=== PATIENT | male | born 1945 | race Caucasian/White ===

== ENCOUNTER → 2017-04-12 | Outpatient (CLI) | payer OTHER | LOC: BHLMT 09:30 | PROVIDERS: ATTEND Internal Medicine Interventional Cardiology | DX: I34.1 Nonrheumatic mitral (valve) prolapse (principal); I34.0 Nonrheumatic mitral (valve) insufficiency; R06.09 Other forms of dyspnea | CPT/HCPCS: 93005-PO ==

== ENCOUNTER → 2017-04-28 | Outpatient (CLI) | payer OTHER | LOC: BHLMT 15:30 | PROVIDERS: ATTEND Internal Medicine Cardiovascular Disease | DX: R06.09 Other forms of dyspnea (principal) ==

== ENCOUNTER → 2017-06-07 | Outpatient (CLI) | payer OTHER | LOC: BHLMT 09:00 | PROVIDERS: ATTEND Thoracic Surgery (Cardiothoracic Vascular Surgery) | DX: Z01.810 Encounter for preprocedural cardiovascular examination (principal); I49.9 Cardiac arrhythmia, unspecified | CPT/HCPCS: 93225-PO; 93226-PO ==

== ENCOUNTER 2017-06-14 09:11 | Inpatient (IN) | payer OTHER ==
--- NOTE | 2017-06-14 08:35 | PDHPUP ---
History & Physical Update H&P update statement: This history and physical update is based on an assessment of the patient which was completed after admission or registration (within 24 hours), but prior to the surgery/procedure. H&P update: H&P reviewed & patient examined, no change in patient's condition since H&P completed
--- NOTE | 2017-06-14 08:36 | PDPROPOC ---
Sedation Plan of Care Sedation Plan of Care: vital signs stable, mental status noted, patient educated of risks, benefits, alternatives, patient can tolerate sedation ASA Classification: ASA 3 Planned drugs: fentanyl, midazolam Mallampati Score: Class 3 Mallampati Reference Image: Patient passed 3-3-2 rule?: Yes
[2017-06-14] MEDS ORDERED: diphenhydrAMINE 25 MG CAP PO ONE ×2 (09:14→09:35)
[2017-06-14] MEDS ORDERED: FAMOTIDINE 20 MG TAB PO ONE (09:14)
[2017-06-14] MEDS ORDERED: ASPIRIN EC 325 MG TAB PO ONE ×2 (09:14→09:35)
[2017-06-14] MEDS ORDERED: NS 1,000 ML IV ONE (09:14)
[2017-06-14] MEDS ORDERED: DIAZEPAM 5 MG TAB ONE (09:35)
[2017-06-14] MEDS ORDERED: FAMOTIDINE 20 MG TAB ONE (09:35)
--- NOTE | 2017-06-14 09:40 | CPEKG ---
Heart Rate: 73 RR Interval: 822 P-R Interval: 160 QRSD Interval: 108 QT Interval: 440 QTC Interval: 485 P [place]: 51 QRS [place]: -26 T Wave [place]: 35 EKG Severity - ABNORMAL ECG - EKG Impression: SINUS RHYTHM EKG Impression: MULTIPLE VENTRICULAR PREMATURE COMPLEXES EKG Impression: BORDERLINE PROLONGED QT INTERVAL EKG Impression: LEFT AXIS DEVIATION EKG Impression: LEFT VENTRICULAR HYPERTROPHY Electronically Signed By: Herbie Lane 15-Jun-2017 11:46:41
[2017-06-14 10:01] LABS: INR 1.02 (0.83-1.16); PROTIME(PATIENT) 13.6 SEC (12.0-15.0)
[2017-06-14] MEDS: DIAZEPAM 5 MG TAB PO ONE ×2 (10:02→10:07)
[2017-06-14 10:07] LABS: PLATELET COUNT 183 10^3/uL (150-400)
[2017-06-14] MEDS ORDERED: fentaNYL 100 MCG/2 ML INJ ONE (10:23)
[2017-06-14] MEDS ORDERED: VERAPAMIL 5 MG/2 ML VIAL ONE (10:23)
[2017-06-14] MEDS ORDERED: MIDAZOLAM 2 MG/2 ML VIAL ONE ×2 (10:23→12:15)
[2017-06-14] MEDS ORDERED: LIDOCAINE 1% 300 MG/30 ML SDV ONE (10:23)
[2017-06-14] MEDS ORDERED: HEPARIN 10,000 UNIT/10 ML MDV (1,000 UNIT/ML) ONE (10:24)
[2017-06-14] MEDS ORDERED: IOPAMIDOL (ISOVUE-370) 150 ML BTL IV ONE (10:24)
[2017-06-14] MEDS ORDERED: ETOMIDATE 40 MG/20 ML INJ ONE (11:07)
--- NOTE | 2017-06-14 12:14 | PDDXCAT ---
Diagnostic Cath Note - . 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 It bifurcates into an LAD and circumflex system. LAD: LAD is 4mm in size. LCX: Circumflex is 3.5mm in size. There is no flow limiting obstruction identified. KRISTOFER III flow. RCA: RCA is dominant. It is 4mm in size. There is a paiz's crook deformity at takeoff from right coronary cusp. KRISTOFER III flow throughout. Complications: None. 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 The patient has moderately severe mitral regurgitation as well as evidence of a PFO on SU. The patient has no evidence of significant coronary disease. During the procedure the patient vomitted a fairly large amount of bilious material. The patient's saturation and breathing pattern were normal throughout. Plan: The patient will proceed with mitral valve repair, although it may be reasonable to wait to make sure he has not had an aspiration injury to his lung. Intervention: None.
[2017-06-14] MEDS ORDERED: ONDANSETRON 4 MG/2 ML VIAL ONE (12:30)
[2017-06-14] MEDS ORDERED: ONDANSETRON 4 MG/2 ML VIAL IVP PRN (12:34)
[2017-06-14] MEDS ORDERED: NITROGLYCERIN 0.4 MG BTL SL PRN (12:34)
[2017-06-14] MEDS ORDERED: ATROPINE SULFATE 1 MG/10 ML SYR IVP PRN (12:34)
[2017-06-14] MEDS: FAMOTIDINE 20 MG TAB PO SCH (18:29)
[2017-06-14] MEDS ORDERED: CHLORHEXIDINE GLUC HIBICLENS 118 ML BTL TP SCH (21:00)
[2017-06-14] MEDS: MUPIROCIN 2% 22 GM OINT NS SCH (22:10)
[2017-06-14] MEDS: SENNOSIDES/DOCUSATE SODIUM TAB PO SCH (22:12)
[2017-06-15] MEDS ORDERED: PHENYLEPHRINE HCL 50 MG in NS 250 ML IV ONE (06:00)
[2017-06-15] MEDS ORDERED: ceFAZolin 2 GM/SWFI 2 GM/20 ML SYR IVP ONE (06:00)
[2017-06-15] MEDS ORDERED: niCARdipine/NACL 200 ML IV ONE (06:00)
[2017-06-15] MEDS ORDERED: INSULIN REGULAR HUMAN 100 UNIT in NS 100 ML IV ONE (06:00)
[2017-06-15] MEDS ORDERED: AMINOCAPROIC ACID 5 GM/20 ML VIAL IV ONE (06:00)
[2017-06-15] MEDS ORDERED: MANNITOL 25% 12.5 GM/50 ML VIAL IVP ONE (06:00)
[2017-06-15] MEDS ORDERED: SODIUM BICARBONATE 20 MEQ, LIDOCAINE 1% 10 ML in NORMOSOL-R 1,000 ML MISC ONE (06:00)
[2017-06-15] MEDS ORDERED: CITRATE DEXTROSE SOLN 500 ML BAG MISC ONE (06:00)
[2017-06-15] MEDS ORDERED: LR 1,000 ML IV ONE (06:16)
[2017-06-15] MEDS ORDERED: ALBUMIN 5% 250 ML BOTTLE IV ONE ×2 (06:21→11:15)
[2017-06-15] MEDS ORDERED: MILRINONE/DEXTROSE/100 ML BAG IV ONE (06:21)
[2017-06-15] MEDS ORDERED: PROTAMINE SULFATE 50 MG/5 ML VIAL IVP ONE (06:21)
[2017-06-15] MEDS ORDERED: CALCIUM CHLORIDE 1 GM/10 ML INJ ONE (06:21)
[2017-06-15] MEDS ORDERED: LIDOCAINE 2% 100 MG/5 ML SYR ONE ×2 (06:21→07:23)
[2017-06-15] MEDS ORDERED: NA BICARBONATE 50 MEQ/50 ML VIAL ONE (06:21)
[2017-06-15] MEDS ORDERED: HEPARIN 10,000 UNIT/10 ML MDV (1,000 UNIT/ML) ONE (06:22)
[2017-06-15] MEDS ORDERED: CITRATE DEXTROSE SOLN 500 ML BAG ONE (06:22)
[2017-06-15] MEDS ORDERED: ADENOSINE 6 MG/2 ML VIAL ONE (06:22)
[2017-06-15] MEDS ORDERED: niCARdipine/NACL/200 ML BAG IV ONE (06:22)
[2017-06-15] MEDS ORDERED: DOPamine/DEXTROSE/250 ML BAG IV ONE ×2 (06:22→14:39)
[2017-06-15] MEDS ORDERED: AMIODARONE HCL 150 MG/3 ML VIAL ONE (06:22)
[2017-06-15] MEDS ORDERED: ceFAZolin 1 GM VIAL ONE (06:23)
[2017-06-15] MEDS ORDERED: methylPREDNISolone SOD SUCC 1 GM/8 ML VIAL ONE (06:23)
[2017-06-15] MEDS ORDERED: MAGNESIUM SULFATE 1 GM/2 ML VIAL ONE (06:23)
--- NOTE | 2017-06-15 06:46 | PDHPUP ---
<Omar Duncan - Last Filed: 06/15/17 12:28> History & Physical Update H&P update statement: This history and physical update is based on an assessment of the patient which was completed after admission or registration (within 24 hours), but prior to the surgery/procedure. <Chiara Berger - Last Filed: 06/16/17 10:49> History & Physical Update H&P update statement: This history and physical update is based on an assessment of the patient which was completed after admission or registration (within 24 hours), but prior to the surgery/procedure. H&P update: H&P reviewed & patient examined, changes noted H&P changes: CXR NAF. Carotid US neg for HD sig stenosis
[2017-06-15] MEDS ORDERED: MIDAZOLAM 2 MG/2 ML VIAL IVP ONE (06:52)
[2017-06-15] MEDS ORDERED: SCOPOLAMINE HYDROBROMIDE 1 MG/3 DAYS PATCH TD SCH (07:00)
[2017-06-15] MEDS ORDERED: DEXMEDETOMIDINE HCL 400 MCG in NS 100 ML IV SCH (07:00)
--- NOTE | 2017-06-15 07:02 | PDANEPAE ---
ANE History of Present Illness posterior cord rupture s/f MVR, PFO, JAXON clipping ANE Past Medical History - Cardiovascular History Hx Hypertension: No Hx Arrhythmias: Yes Hx Chest Pain: No Hx Coronary Artery / Peripheral Vascular Disease: No Hx CHF / Valvular Disease: Yes Cardiovascular History Comment: severe MR - Pulmonary History Hx Oxygen in Use at Home: No Hx Sleep Apnea: No Sleep Apnea Screening Result - Last Documented: Positive - Endocrine History Hx Diabetes: No - Cancer History Hx Cancer: Yes Cancer History Comment: melanoma - Chronic Pain History Chronic Pain: Yes ANE Review of Systems Review of Systems: - Exercise capacity Exercise capacity: >=4 METS ANE Patient History - Allergies Allergies/Adverse Reactions: codeine Allergy (Verified 06/14/17 16:03) Vomiting - Home Medications Home medications: home medication list seen and reviewed Home Medications: Carboxymethylcellulose 1% [Refresh Celluvisc (*)] 1 drop EACHEYE DAILY PRN 06/07 [Last Taken 06/13/17] Famotidine [Pepcid 20 MG (*)] 60 mg PO BIDMEAL 06/07/17 [Last Taken 06/13/17] Fexofenadine HCl [Vashti Allergy] 180 mg PO BID 06/07/17 [Last Taken 06/14/17] Spironolactone [Aldactone 25 MG (*)] 25 mg PO DAILY 06/07/17 [Last Taken ] - NPO status NPO Since - Liquids (Date): 06/15/17 NPO Since - Liquids (Time): 00:01 NPO Since - Solids (Date): 06/15/17 NPO Since - Solids (Time): 00:01 - Anes Hx Anes Hx: post operative nausea and vomiting - Smoking Hx Smoking Status: Never smoked - Alcohol Use Alcohol Use: Occasionally - Family Anes Hx Family Anes Hx: none ANE Labs/Vital Signs - Labs Result Diagrams: 06/14/17 Unknown 06/15/17 05:21 - Vital Signs Blood Pressure: 134/86 Heart Rate: 68 Respiratory Rate: 16 O2 Sat (%): 95 Height: 200.66 cm Weight: 119.9 kg ANE Physical Exam - Airway Mallampati Score: Class 2 Mouth exam: normal dental/mouth exam - Pulmonary Pulmonary: no respiratory distress - Cardiovascular Cardiovascular: regular rate and rhythym, systolic murmur - ASA Status ASA Status: II ANE Anesthesia Plan Anesthesia Plan: general endotracheal anesthesia Lines/Monitors: arterial line, central line, SU (scopalamine patch, precedex, aggresive PONV prophylaxis)
[2017-06-15] MEDS: MUPIROCIN 2% 22 GM OINT NS SCH ×2 (07:17→19:35)
[2017-06-15] MEDS ORDERED: fentaNYL 250 MCG/5 ML INJ ONE (07:22)
[2017-06-15] MEDS ORDERED: REMIFENTANIL HCL 1 MG VIAL ONE ×2 (07:22→09:24)
[2017-06-15] MEDS ORDERED: PHENYLEPHRINE HCL 100 MCG/ML SYR ONE (07:22)
[2017-06-15] MEDS ORDERED: MIDAZOLAM 2 MG/2 ML VIAL ONE ×2 (07:22)
[2017-06-15] MEDS ORDERED: PROPOFOL/EMULSION 500 MG/50 ML BOTTLE IV ONE ×2 (07:22→09:24)
[2017-06-15] MEDS ORDERED: ONDANSETRON 4 MG/2 ML VIAL ONE (07:23)
[2017-06-15] MEDS ORDERED: ROCURONIUM 100 MG/10 ML VIAL ONE (07:23)
[2017-06-15] MEDS ORDERED: DEXAMETHASONE 4 MG/ML VIAL ONE ×2 (07:23)
[2017-06-15] MEDS ORDERED: SCOPOLAMINE HYDROBROMIDE 1 MG/3 DAYS PATCH TD ONE (07:46)
--- NOTE | 2017-06-15 09:06 | PDMN ---
Medical Necessity Medical necessity: IP surgery per [facility] cpt 66648, 20455 Cath pre MVR
[2017-06-15] MEDS ORDERED: MAGNESIUM SULF 2 GM/WATER 50 ML BAG IV ONE (11:15)
[2017-06-15] MEDS ORDERED: MINERAL OIL 10 ML VIAL ONE (11:15)
[2017-06-15] MEDS ORDERED: SUGAMMADEX SODIUM 200 MG/2 ML VIAL IVP ONE (11:19)
[2017-06-15] MEDS ORDERED: fentaNYL 100 MCG/2 ML INJ ONE (11:27)
[2017-06-15] MEDS: FAMOTIDINE 20 MG TAB PO SCH ×2 (11:45→17:51)
[2017-06-15] MEDS: SENNOSIDES/DOCUSATE SODIUM TAB PO SCH (11:46)
[2017-06-15] MEDS ORDERED: D50W 25 GM/50 ML SYR IVP PRN (11:49)
[2017-06-15] MEDS ORDERED: MEPERIDINE 25 MG/ML SYR IVP PRN (11:49)
[2017-06-15] MEDS ORDERED: ACETAMINOPHEN 650 MG SUPP PR PRN (11:49)
[2017-06-15] MEDS ORDERED: POLYETHYLENE GLYCOL 3350 17 GM PKT PO PRN (11:49)
[2017-06-15] MEDS ORDERED: LACTULOSE 20 GM/30 ML UDCUP PO PRN (11:49)
[2017-06-15] MEDS ORDERED: CEPACOL LOZENGE PO PRN (11:49)
[2017-06-15] MEDS ORDERED: MAGNESIUM HYDROXIDE 30 ML UDCUP PO PRN (11:49)
[2017-06-15] MEDS ORDERED: ONDANSETRON DISINTEGRATING 4 MG TAB PO PRN (11:49)
[2017-06-15] MEDS ORDERED: PANTOPRAZOLE SODIUM 40 MG VIAL IVP ONE (11:49)
[2017-06-15] MEDS ORDERED: MAGNESIUM SULF 2 GM/WATER 50 ML IV ONE (11:49)
[2017-06-15] MEDS ORDERED: HYDROCODONE/APAP 5/325 TAB PO PRN (11:49)
[2017-06-15] MEDS ORDERED: POTASSIUM Cl (KCl) 50 ML IV PRN (11:49)
[2017-06-15] MEDS ORDERED: SODIUM CL NASAL 45 ML BTL EACHNARE PRN (11:49)
[2017-06-15] MEDS ORDERED: BISACODYL 10 MG SUPP PR PRN (11:49)
[2017-06-15] MEDS ORDERED: fentaNYL 100 MCG/2 ML INJ IVP PRN (11:49)
[2017-06-15] MEDS ORDERED: NS 1,000 ML IV SCH (12:00)
[2017-06-15] MEDS ORDERED: KETOROLAC 15 MG/1 ML SDV IVP SCH (12:00)
[2017-06-15] MEDS ORDERED: INSULIN REGULAR HUMAN 100 UNIT in NS 100 ML IV SCH (12:00)
[2017-06-15] MEDS: ALBUMIN 5% 250 ML IV PRN ×3 (12:15→14:55)
[2017-06-15] MEDS ORDERED: AMIODARONE HCL 200 ML IV ONE (12:30)
--- NOTE | 2017-06-15 12:33 | GOP ---
[f rep st] OPERATIVE REPORT DATE OF OPERATION: 06/15/2017 SURGEON: Omar Duncan DO SAUSAGE COOKER: Chiara Berger PA-C ANESTHESIOLOGIST: Mani Duffy MD PREOPERATIVE DIAGNOSIS: 1. Severe mitral insufficiency. 2. Patent foramen ovale. 3. Septal hypertrophy. POSTOPERATIVE DIAGNOSIS: 1. Severe mitral insufficiency. 2. Patent foramen ovale. 3. Septal hypertrophy. PROCEDURE PERFORMED: 1. Chordal-sparing mitral valve replacement with a 33 mm Magna bioprosthesis. 2. Exploration for patent foramen ovale, none found. 3. Extended septal myectomy. 4. Atrial clip the left atrial appendage. FINDINGS: DESCRIPTION OF PROCEDURE: The patient was consented for surgery, brought to the operating room, intu bated. Monitoring lines were placed. He was prepped in a sterile classical manner. Time-out was co nfirmed. Sternotomy was performed. He was heparinized. Intraoperative transesophageal echo reveale d anteriorly directed severe mitral insufficiency emanating from predominantly P1, but also P2. The anterior leaflet was markedly thickened. There was moderate mitral annular calcification. He was he parinized, cannulated in a standard fashion with bicaval cannulae, and a retrograde catheter. Cardio pulmonary bypass was begun and cardioplegic arrest was obtained with antegrade cardioplegia, retrogra de cardioplegia, topical hypothermia, and systemic cooling throughout the procedure every 8-10 minute s. Initially, an aortotomy was performed. The aortic valve was trileaflet with some mild thickening and some central regurgitation on echo, which was felt to be mild at most. The valve was gently ret racted. The septum was exposed and a trapezoid shaped segment approximately 1 cm thick x 2 cm wide w as taken from the midportion below the right coronary artery, toward the mitral valve annulus, all th e way down to the apex, where the papillary muscle was adherent to this septum, and was as well. This was copiously irrigated. No loose material was identified. We then closed the aortotomy with 2 layer 4-0 Prolene, then placed a 40 mm atrial clip across the across the base of the left atr ial appendage, which was free of thrombus on echo. We then exposed the mitral valve through the righ t superior pulmonary vein. The anterior leaflet was markedly thickened and not very pliable. There was moderate mitral annular calcification. However, I felt that the anulus was potentially repairabl e. I then identified complete prolapse of P1 with ruptured chordae and marked prolapse of P2 and P3, as well as A3. I initially repaired P1 with a triangular resection. With distention of the ventric le, I felt that adequate repair would be markedly difficult because of the thickness and lack of plia bility of most of the remaining leaflet. For that reason, I decided to do a chordal-sparing replacem ent. Anterior leaflet was detached and reapproximated at 8 and 4 o'clock into a horizontal mattress pledgeted suture placed through the anulus and through a 33 mm Magna valve. It was secured with Cor- Knots. LV chamber was irrigated again. Left atrium was closed in a standard fashion. Prior to that , I did look for a PFO. With distention of the right atrium, there was no blood trickling down from the septal wall. Even with a mirror, I could find no patent foramen. I believe it was quite lateral , and then the part of the suture line, which I took larger plates in order to incorporate any PFO th at might remain under the retractor, although I could not clearly define it when closing the left atr ium. The patient was placed in deep Trendelenburg. The cross-clamp was removed with suction on the ascending aortic vent with intermittent aspiration through the LV apex. When no further air was iden tified, he was weaned from bypass. Transesophageal echo revealed no perivalvular leak and no obstruc tion to the outflow tract, with a normal-appearing septum, and no chordal bilateral impingement of th e outflow tract. The heparin was reversed with protamine. The cannula was removed and oversewn. Tw o ventricular pacing wires, 1 right pleural and 1 mediastinal drain, were placed. The thymic fat and pericardium were closed. The chest was closed in standard fashion. Patient was returned to ICU in stable condition. /[id number]/MODL
[2017-06-15] MEDS ORDERED: ALBUMIN 5% 500 ML BOTTLE IV ONE (12:36)
[2017-06-15] MEDS: ONDANSETRON 4 MG/2 ML VIAL IVP PRN ×3 (13:17→20:46)
[2017-06-15] MEDS ORDERED: ENOXAPARIN 40 MG/0.4 ML SYR SC SCH (14:30)
[2017-06-15] MEDS: METOCLOPRAMIDE 10 MG/2 ML VIAL IVP PRN ×2 (14:45→19:58)
[2017-06-15] MEDS ORDERED: ALBUMIN 5% 500 ML IV ONE (15:00)
--- NOTE | 2017-06-15 17:20 | POSTANESTH ---
Post Anesthetic Evaluation Cardiovascular Status: Tx Hyper/Hypo-tension (small amount of Dopamine) Respiratory Status: Tx Decrease in SpO2 (O2 by NC) Level of Consciousness/Mental Status: Can Participate in Eval, Mildly Sleepy, Arousable Pain Control: Adequate, Prn Tx Ordered (Morphine working now) Nausea/Vomiting Control: Adequate, Prn Tx Ordered (0 N/V so far) Complications Possibly Related to Anesthesia: None Noted
[2017-06-15] MEDS ORDERED: AMIODARONE HCL 540 MG in D5W 300 ML IV ONE (18:30)
[2017-06-15] MEDS: ceFAZolin 2 GM/SWFI 2 GM/20 ML SYR IVP SCH (19:11)
[2017-06-15] MEDS ORDERED: ceFAZolin 2 GM/DEXTROSE 100 ML IV SCH (20:00)
[2017-06-15] MEDS ORDERED: ALBUMIN 5% 250 ML IV ONE (21:45)
[2017-06-16] MEDS: ceFAZolin 2 GM/SWFI 2 GM/20 ML SYR IVP SCH ×3 (04:25→20:37)
[2017-06-16 04:28] LABS: PLATELET COUNT 107 10^3/uL (150-400)
[2017-06-16 04:37] LABS: INR 1.25 (0.83-1.16); PROTIME(PATIENT) 15.9 SEC (12.0-15.0)
[2017-06-16] MEDS ORDERED: AMIODARONE A.FIB-LOAD DOSE(ORDER 1/3) PREMIX IV ONE (05:30)
[2017-06-16] MEDS: HEPARIN 5,000 UNIT/0.5 ML SYR SC SCH ×3 (06:06→20:37)
--- NOTE | 2017-06-16 07:12 | SOAPPROG ---
SOAP Progress Note Assessment/Plan: Assessment: POD#1 Chordal sparing MVR #33 Magna bioprosthesis, transaortic septal myectomy, exploration for PFO, prophylactic AtriClip ligation JAXON Sx severe MR - Complex bileaflet involvement not amenable to repair and converted to MVR. Extubated in the OR. Mild postCPB vasoplegia requiring low dose pressor support. No bradyarrhythmias. No significant CTOP. Antithrombotic prophylaxis with Coumadin. Target INR 2-3. Duration 3 mo pending stability of rhythm. Chronic class II dCHF - Compensated with diuresis. No significant postop volume overload. Reintro of diuretic when appropriate. Asymmetric septal hypertrophy - s/p extended myectomy. Antithrombotic prophylaxis as per MV. Postop PAF - Hx PAT. AF prophylaxis with amio begun in OR. Early postop rhythm SB. Insufficient BP for BB. Burst of SVT this am treated with addtl amio. Plan cont amio unless becomes pacer dependent. Acute expected blood loss anemia - Stable. No transfusions required. Hx small PFO - Not found by intraop inspection. Plan: Routine POD#1 orders re drains, orals and mobility. Vpace at 90 to facilitate dopa wean. Keep david until off dopa. Cont amio as per protocol. Lasix prn CVP > 19. Colloid prn CVP < 15. Inc activity as tolerated. Possible tx to PCU later today. 06/16/17 07:06 Subjective: Doing ok. Pain controlled. Thirsty. No nausea. Eager to try getting OOB. Wants aj out. Objective: Vital Signs Temp Pulse Resp BP Pulse Ox 37.3 C 52 L 22 H 97/59 L 91 L 06/16/17 04:00 06/16/17 06:00 06/16/17 06:00 06/16/17 06:00 06/16/17 06:00 Laboratory Results 06/16/17 04:20 06/16/17 04:20 06/15/17 06/16/17 06/17/17 05:59 05:59 05:59 Intake Total 1100 2751 Output Total 1815 Balance 1100 936 PT 15.9 SEC (12.0-15.0) H 06/16/17 04:20 INR 1.25 (0.83-1.16) H 03/08/18 04:20 BP sag yest afternoon, txd with dopa. Overnoc titration down to 4 mcg. CVPs 17- 19. Adequate UOP Holding SB after burst of SVT/AF this am. With Vpacing at 90 able to augment BP by 20 pts, and dopa wean initiated. Positive fluid balance. +4 kg overall. CXR -> No PTX, mild pulm vasc congestion, bibasilar atelectasis L>R Labs as expected. Physical Exam - Physical Exam General Appearance: alert, no apparent distress Respiratory: crackles, other (blakes x 2 y-d to pleurovac, serosang drainage, no air leak) Cardiac/Chest: regular rate, rhythm, other (Sternotomy CDI. Vwires intact.) Abdomen: non-tender, soft, other (hypoactive BS) Skin: warm/dry Extremities: swelling (1+ gen) ICD10 Worksheet Patient Problems: Problems Problem Status Onset Acute blood loss anemia Acute S/P mitral valve replacement with bioprosthetic valve Acute ~06/15/17 S/P ventricular septal myectomy Acute ~06/15/17 Severe mitral regurgitation Acute Asymmetric septal hypertrophy Chronic History of paroxysmal atrial tachycardia Chronic
[2017-06-16] MEDS: FAMOTIDINE 20 MG TAB PO SCH ×2 (09:51→17:37)
[2017-06-16] MEDS: ASPIRIN 81 MG CHEWABLE TAB PO SCH (09:52)
[2017-06-16] MEDS: MUPIROCIN 2% 22 GM OINT NS SCH ×2 (09:54→20:40)
[2017-06-16] MEDS: ONDANSETRON 4 MG/2 ML VIAL IVP PRN (10:45)
[2017-06-16] MEDS ORDERED: ALBUMIN 5% 250 ML IV ONE ×2 (11:49→15:30)
--- NOTE | 2017-06-16 14:24 | ASMTCASEMG ---
Living Arrangements What is your living Answers: With Spouse arrangement? Who do you live with? Type Of Residence What kind of residence do Answers: House you live in? Discharge Plan Comments Coordination Status Comments Notes: Reviewed chart. Patient is a 71yo male who comes to the hospital for mitral valve replacement with Dr. Duncan. OT/PT/Cardiac rehab have been ordered. PT is recommending either home care or SNF rehab depending on the patient's progress. OT states no needs. D/C plan TBD in the next couple of days as patient recovers more from surgery. CM will follow. Date Signed: 06/16/2017 02:23 PM Electronically Signed By:Khalida Chaudhary LCSW
[2017-06-16] MEDS ORDERED: ALBUMIN 5% 250 ML BOTTLE IV ONE (15:17)
[2017-06-16] MEDS ORDERED: NOREPINEPHRINE/NS 500 ML IV SCH (15:30)
[2017-06-16] MEDS ORDERED: NOREPINEPHRINE BITARTRATE 4 MG in D5W 500 ML IV SCH (16:30)
[2017-06-16] MEDS: ACETAMINOPHEN 325 MG TAB PO PRN (18:45)
[2017-06-17] MEDS: ACETAMINOPHEN 325 MG TAB PO PRN ×2 (03:55→23:11)
[2017-06-17] MEDS: ceFAZolin 2 GM/SWFI 2 GM/20 ML SYR IVP SCH (04:58)
[2017-06-17] MEDS: HEPARIN 5,000 UNIT/0.5 ML SYR SC SCH ×2 (05:00→11:17)
[2017-06-17 05:18] LABS: PLATELET COUNT 91 10^3/uL (150-400)
[2017-06-17 05:27] LABS: INR 1.26 (0.83-1.16)
--- NOTE | 2017-06-17 06:54 | SOAPPROG ---
SOAP Progress Note Assessment/Plan: Assessment: POD#2 Chordal sparing MVR #33 Magna bioprosthesis, transaortic septal myectomy, exploration for PFO, prophylactic AtriClip ligation JAXON Sx severe MR - Complex bileaflet involvement not amenable to repair and converted to MVR. Extubated in the OR. Mild postCPB vasoplegia requiring low dose pressor support. No significant CTOP. Antithrombotic prophylaxis with Coumadin. Target INR 2-3. Duration 3 mo pending stability of rhythm. Chronic class II dCHF - Compensated with diuresis. No significant postop volume overload. Reintro of diuretic when appropriate. Asymmetric septal hypertrophy - s/p extended myectomy. Antithrombotic prophylaxis as per MV. Postop PAF - Hx PAT. AF prophylaxis with amio begun in OR. Early postop rhythm SB 50s becoming JR/pacer dep after addtl amio for PSVT. Amio subsequently stopped and SB recovered. Paced 80s overnoc for hemodynamic support. Underlying rhythm remains SB 50s. Postop ileus - Distended abd with diminished bowel sounds. Dietary restriction imposed. Supportive therapies for now. Acute expected blood loss anemia - Stable. No transfusions required. Hx small PFO - Not found by intraop inspection. Plan: D/C scopolamine patch. Clear liquid diet. Keep Vwires connected, but no pacing unless intrinsic rate < 50. Remove jason drains. Lasix prn CVP > 19. Colloid prn CVP < 15. Start Coumadin. 5 mg today Baseline postop echo today. Inc activity as tolerated. Possible tx to PCU later today. 06/17/17 06:53 Subjective: Doing ok. Pain well controlled. Belly bloated. Feels constipated and a little nauseous. Dizzy when upright. Objective: Vital Signs Temp Pulse Resp BP Pulse Ox 37.0 C 84 25 H 107/59 L 95 06/16/17 19:49 06/17/17 06:00 06/17/17 06:00 06/17/17 06:00 06/17/17 06:00 Laboratory Results 06/17/17 05:00 06/17/17 05:00 06/16/17 06/17/17 06/18/17 05:59 05:59 05:59 Intake Total 2751 2560.5 Output Total 1815 1591 110 Balance 936 969.5 -110 PT 16.0 SEC (12.0-15.0) H 06/17/17 05:00 INR 1.26 (0.83-1.16) H 06/17/17 05:00 Off levo overnoc. Holding SBP > 100 without overdrive pacing. Positive fluid balance, but < 2 kg by wts. Stable sats on 2lpm O2. CTOP at removal criteria. Labs ok. Physical Exam - Physical Exam General Appearance: alert, no apparent distress Respiratory: lungs clear (grossly), other (blakes x 2 to bulb suction, serosang drainage) Cardiac/Chest: regular rate, rhythm, other (Sternotomy CDI. Vwire intact.) Abdomen: non-tender (to light palp), distended (slightly), other (hypoactive BS) Skin: warm/dry Extremities: other (no visible edema) ICD10 Worksheet Patient Problems: Problems Problem Status Onset Acute blood loss anemia Acute S/P mitral valve replacement with bioprosthetic valve Acute ~06/15/17 S/P ventricular septal myectomy Acute ~06/15/17 Severe mitral regurgitation Acute Asymmetric septal hypertrophy Chronic History of paroxysmal atrial tachycardia Chronic
[2017-06-17] MEDS: FAMOTIDINE 20 MG TAB PO SCH ×2 (07:28→18:19)
[2017-06-17] MEDS ORDERED: CARBOXYMETHYLCELLULOSE 1% 0.4 ML DROPERETTE EACHEYE PRN (07:43)
[2017-06-17] MEDS: traMADol 50 MG TAB PO PRN ×2 (10:33→16:28)
[2017-06-17] MEDS: ASPIRIN 81 MG CHEWABLE TAB PO SCH (10:33)
[2017-06-17] MEDS: SENNOSIDES/DOCUSATE SODIUM TAB PO SCH ×2 (10:33→21:07)
[2017-06-17] MEDS: MUPIROCIN 2% 22 GM OINT NS SCH (10:34)
[2017-06-17] MEDS: CETIRIZINE 10 MG TAB PO SCH (10:34)
--- NOTE | 2017-06-17 12:36 | ECHO ---
[email or web address] [address] [address] Main: [phone] Fax: Transthoracic Echocardiogram Name: JAMA LOTT MR#: [id number] Study Date: 06/17/2017 Study Time: 09:35 AM Date of : 1945 Age: 71 year(s) Height: 200.7 cm (79 in.) Weight: 90.72 kg (200 lb.) BSA: 2.28 m2 Gender: Male Examination: Echo Indication: s/p MVR#33 CE Magna Bioprosthesis and septal myectomy Image Quality: Technically Difficult Contrast: Requested by: Chiara Berger BP: 105 mmHg/59 mmHg Heart Rate: Rhythm: Indication: s/p MVR#33 CE Magna Bioprosthesis and septal myectomy Procedure Staff Sas Statistical Programmer: Andree Molina [facility] Reading Physician: Herbie Castano MD Requesting Provider: Conclusions: Normal size left ventricle. Normal global systolic LV function. EF is 59 %. No obvious color flow across IVS. Right ventricle not well visualized. The left atrium is moderately dilated. The right atrium is normal in size. A bioprothetic mitral valve is in place. Prosthetic mitral valve orifice motion is normal. Prosthetic mitral valve gradients are within normal limits. Trivial MV prosthesis regurgitation. Aortic valve is not well visualized. Mild aortic valve regurgitation is present. No aortic valve stenosis is present. The tricuspid valve is normal in appearance and function. Mild tricuspid regurgitation is present. Right ventricular systolic pressure measures 32mmHg. Pulmonary valve not visualized. No pericardial effusion. Measurements: Chambers Valvular Assessment AV/MV Valvular Assessment TV/PV Normal Normal Normal Name Value Range Name Value Range Name Value Range LVEF (BP): 59 % (>=55 %) AV Vmax: 1.55 m/s (1 m/s-1.7 TR Vmax: 2.58 mm/s ( - ) RVDd(2D): 3.6 cm (1.9 cm-3.8 m/s) TR PGmax: 27 mmHg ( - ) cmmm) AV maxP mmHg ( - ) LVOT Vmax: 0.87 m/s (0.7 m/s-1.1 m/s) Patient: JAMA LOTT Study Date: 06/17/2017 Page 1 of 2 09:35 AM MV meanP mmHg ( - ) MV PHT: 0.111 s ( - ) MVA (PHT): 2.0 s ( - ) Continued Measurements: Chambers Valvular Assessment AV/MV Name Value Name Value LADs Lon.4 cm MV VTI: 45.40 cm LA Area: 30.8 cm2 LA Volume: 105 ml LA Volume Index: 46.1 ml/m2 Findings: Left Ventricle: Normal size left ventricle. Normal global systolic LV function. EF is 59 %. Post-op septal motion noted. No obvious color flow across IVS. Right Ventricle: Right ventricle not well visualized. Left Atrium: The left atrium is moderately dilated. Right Atrium: The right atrium is normal in size. Mitral Valve: A bioprothetic mitral valve is in place. Prosthetic mitral valve orifice motion is normal. Prosthetic mitral valve gradients are within normal limits. Trivial MV prosthesis regurgitation. Aortic Valve: Aortic valve is not well visualized. Mild aortic valve regurgitation is present. No aortic valve stenosis is present. Tricuspid Valve: The tricuspid valve is normal in appearance and function. Mild tricuspid regurgitation is present. Right ventricular systolic pressure measures 32mmHg. The pulmonary artery pressure is normal. Pulmonic Valve: Pulmonary valve not visualized. Pericardium: No pericardial effusion. (No Signature Object) Patient: JAMA LOTT Study Date: 06/17/2017 Page 2 of 2 09:35 AM [id number]
[2017-06-17] MEDS ORDERED: WARFARIN SODIUM 5 MG TAB PO ONE (16:00)
[2017-06-17] MEDS ORDERED: FUROSEMIDE 40 MG/4 ML VIAL IVP ONE (21:01)
[2017-06-18 05:59] LABS: INR 1.49 (0.83-1.16); PROTIME(PATIENT) 18.2 SEC (12.0-15.0)
[2017-06-18] MEDS: ACETAMINOPHEN 325 MG TAB PO PRN ×2 (06:12→18:41)
--- NOTE | 2017-06-18 07:24 | SOAPPROG ---
SOAP Progress Note Assessment/Plan: POD#3 Chordal sparing MVR #33 Magna bioprosthesis, transaortic septal myectomy, exploration for PFO, prophylactic AtriClip ligation JAXON Sx severe MR - Complex bileaflet involvement not amenable to repair and converted to MVR. Extubated in the OR. Mild postCPB vasoplegia requiring low dose pressor support. Antithrombotic prophylaxis with Coumadin. Target INR 2-3. Duration 3 mo pending stability of rhythm. Routine postop echo performed yesterday showed EF 59% and a well-functioning prosthetic mitral valve. Chronic class II dCHF - Compensated with diuresis. No significant postop volume overload. Reintro of diuretic when appropriate. Asymmetric septal hypertrophy - s/p extended myectomy. Antithrombotic prophylaxis as per MV. Postop PAF - Hx PAT. AF prophylaxis with amio begun in OR. Early postop rhythm SB 50s becoming JR/pacer dep after addtl amio for PSVT. Amio subsequently stopped and SB recovered. Previously paced 80s for hemodynamic support, however did not require pacing overnight. Currently in SB 50's. Postop ileus - Improved abd distention with continued diminished bowel sounds. Dietary restriction imposed. Passing flatus but still no BM. Supportive therapies for now. Acute expected blood loss anemia - Stable. No transfusions required. Hx small PFO - Not found by intraop inspection. Tooth pain- Similar in nature to patient's sinus infection that he had 3 weeks ago. Suspect possible recurrent infection. Plan: Continue clear liquid diet. Will advance tomorrow if tolerating well. Keep Vwires connected, but no pacing unless intrinsic rate < 50. Start Midodrine today. Start Augmentin. Dulcolax suppository if still no BM later on today. Coumadin 2.5 today. Keep patient in chair most of the day today. Inc activity as tolerated. Keep in ICU for today. Subjective: Patient complains of tooth pain which is similar to the pain he had with his sinus infection 3 weeks ago. Otherwise reports adequate surgical pain control. Objective: Vital Signs Temp Pulse Resp BP Pulse Ox 36.8 C 57 L 20 98/65 L 100 06/18/17 07:00 06/18/17 07:00 06/18/17 07:00 06/18/17 07:00 06/18/17 07:00 Laboratory Results 06/18/17 05:35 06/18/17 05:35 06/17/17 06/18/17 06/19/17 05:59 05:59 06:59 Intake Total 2560.5 1800 Output Total 1591 2115 Balance 969.5 -315 PT 18.2 SEC (12.0-15.0) H 06/18/17 05:35 INR 1.49 (0.83-1.16) H 06/18/17 05:35 Physical Exam - Physical Exam General Appearance: WD/WN, alert, no apparent distress Respiratory: normal breath sounds, decreased breath sounds (bases) Cardiac/Chest: bradycardia, other (regular rhythm, sternum stable, sternotomy c/ d/i) Abdomen: non-tender, soft, other (hypoactive bowel sounds, non-distended) Skin: warm/dry Extremities: other (minimal lower extremity edema) Neuro/Psych: alert, normal mood/affect, oriented x 3 ICD10 Worksheet Patient Problems: Problems Problem Status Onset Acute blood loss anemia Acute S/P mitral valve replacement with bioprosthetic valve Acute ~06/15/17 S/P ventricular septal myectomy Acute ~06/15/17 Severe mitral regurgitation Acute Asymmetric septal hypertrophy Chronic History of paroxysmal atrial tachycardia Chronic
[2017-06-18] MEDS: ASPIRIN 81 MG CHEWABLE TAB PO SCH (08:37)
[2017-06-18] MEDS: SENNOSIDES/DOCUSATE SODIUM TAB PO SCH ×2 (08:37→20:11)
[2017-06-18] MEDS: CETIRIZINE 10 MG TAB PO SCH (08:37)
[2017-06-18] MEDS: FAMOTIDINE 20 MG TAB PO SCH ×2 (08:37→17:29)
[2017-06-18] MEDS: MIDODRINE HCL 5 MG TAB PO SCH ×2 (11:42→16:43)
[2017-06-18] MEDS: AMOX/CLAVULANATE 500/125 MG TAB PO SCH ×2 (14:48→22:32)
--- NOTE | 2017-06-18 15:24 | ASMTCMCOM ---
CM Note CM Note Notes: Chart reviewed, patient recovery complicated by episodic syncopal episodes No therapies today. CM to follow for potential discharge needs, Date Signed: 06/18/2017 03:23 PM Electronically Signed By:Rachel Prakash RN
[2017-06-18] MEDS ORDERED: WARFARIN SODIUM 2.5 MG TAB PO ONE (16:00)
[2017-06-18] MEDS ORDERED: BISACODYL 10 MG SUPP PR ONE (17:00)
[2017-06-19 04:43] LABS: INR 1.89 (0.83-1.16); PROTIME(PATIENT) 21.8 SEC (12.0-15.0)
[2017-06-19] MEDS: ACETAMINOPHEN 325 MG TAB PO PRN (06:24)
[2017-06-19] MEDS: AMOX/CLAVULANATE 500/125 MG TAB PO SCH ×3 (06:24→21:25)
--- NOTE | 2017-06-19 07:27 | SOAPPROG ---
SOAP Progress Note Assessment/Plan: POD#4 Chordal sparing MVR #33 Magna bioprosthesis, transaortic septal myectomy, exploration for PFO, prophylactic AtriClip ligation JAXON Sx severe MR - Complex bileaflet involvement not amenable to repair and converted to MVR. Extubated in the OR. Mild post CPB vasoplegia requiring low dose pressor support. Routine postop echo showed EF 59% and a well-functioning prosthetic mitral valve. Started on Midodrine yesterday to augment BP with SBP 90-110's. Will check a cortisol level today to assess for adrenal insufficiency contributing to his low BP. Antithrombotic prophylaxis with Coumadin. Target INR 2-3. Duration 3 mo pending stability of rhythm. Chronic class II dCHF - Compensated with diuresis. No significant postop volume overload. Reintro of diuretic when appropriate. Asymmetric septal hypertrophy - s/p extended myectomy. Antithrombotic prophylaxis as per MV. Postop PAF - Hx PAT. AF prophylaxis with amio begun in OR. Early postop rhythm SB 50s becoming JR/pacer dep after addl amio for PSVT. Amio subsequently stopped and SB recovered. Previously paced in the 80s for hemodynamic support, however has not required pacing over past couple days. Currently in SB 50's. Undiagnosed BROOKS- Episodes of apnea and hypoxia overnight with patient's also reports apneic episodes at home. Recommended outpatient sleep study evaluation to patient. Will have RT evaluate patient for possible CPAP if deemed appropriate while an inpatient. Postop ileus - Abd distention resolved and now with normal bowel sounds. Patient reports being on a regular diet and tolerating this well with no nausea/ vomiting. Patient is passing flatus and had a BM. Acute expected blood loss anemia - Stable. No transfusions required. Secondary thrombocytopenia d/t CPB- Improving with plt count 117 (85). Will cut pacing wires at the skin today. Hx small PFO - Not found by intraop inspection. Tooth pain- Similar in nature to patient's sinus infection that he had 3 weeks ago, resolving. Placed on Augmentin for suspected recurrent infection. Plan: Continue regular diet as tolerated. Will cut pacing wires today. Continue Augmentin. Coumadin 2.5 today. Continue to keep patient in chair most of the day. Inc activity as tolerated. Transfer to the floor today. Subjective: "I want some [employer]." Patient reports improvement in lightheadedness and good pain control. Denies nausea/vomiting. Objective: Vital Signs Temp Pulse Resp BP Pulse Ox 36.5 C 63 20 100/58 L 97 06/19/17 04:00 06/19/17 06:00 06/19/17 06:00 06/19/17 06:00 06/19/17 06:00 Laboratory Results 06/19/17 04:05 06/19/17 04:05 06/18/17 06/19/17 06/20/17 04:59 05:59 05:59 Intake Total Output Total Balance PT 21.8 SEC (12.0-15.0) H 06/19/17 04:05 INR 1.89 (0.83-1.16) H 06/19/17 04:05 Physical Exam - Physical Exam General Appearance: WD/WN, alert, no apparent distress Respiratory: lungs clear ( ), other (no wheezing, rhonchi, rales) Cardiac/Chest: bradycardia, other (no murmur, sternum stable, sternotomy c/d/i) Abdomen: normal bowel sounds, non-tender, soft Skin: warm/dry Extremities: other (warm, no edema) Neuro/Psych: alert, normal mood/affect, oriented x 3 ICD10 Worksheet Patient Problems: Problems Problem Status Onset Acute blood loss anemia Acute S/P mitral valve replacement with bioprosthetic valve Acute ~06/15/17 S/P ventricular septal myectomy Acute ~06/15/17 Severe mitral regurgitation Acute Asymmetric septal hypertrophy Chronic History of paroxysmal atrial tachycardia Chronic
[2017-06-19] MEDS: SENNOSIDES/DOCUSATE SODIUM TAB PO SCH (08:35)
[2017-06-19] MEDS: ASPIRIN 81 MG CHEWABLE TAB PO SCH (08:35)
[2017-06-19] MEDS: MIDODRINE HCL 5 MG TAB PO SCH ×3 (08:35→15:47)
[2017-06-19] MEDS: CETIRIZINE 10 MG TAB PO SCH (08:35)
[2017-06-19] MEDS: FAMOTIDINE 20 MG TAB PO SCH ×2 (08:36→18:25)
[2017-06-19] MEDS ORDERED: FUROSEMIDE 40 MG/4 ML VIAL IVP ONE (10:19)
[2017-06-19] MEDS ORDERED: traMADol 50 MG TAB PO PRN (11:49)
[2017-06-19] MEDS ORDERED: HYDROCODONE/APAP 5/325 TAB PO PRN (11:49)
[2017-06-19] MEDS ORDERED: CEPACOL LOZENGE PO PRN (11:49)
[2017-06-19] MEDS ORDERED: WARFARIN SODIUM 2.5 MG TAB PO ONE (16:00)
[2017-06-20] MEDS: SENNOSIDES/DOCUSATE SODIUM TAB PO SCH ×3 (03:31→22:44)
[2017-06-20] MEDS: ACETAMINOPHEN 325 MG TAB PO PRN ×2 (04:52→20:49)
[2017-06-20] MEDS: AMOX/CLAVULANATE 500/125 MG TAB PO SCH ×3 (05:39→20:49)
[2017-06-20 05:58] LABS: INR 1.86 (0.83-1.16); PROTIME(PATIENT) 21.5 SEC (12.0-15.0)
--- NOTE | 2017-06-20 06:09 | SOAPPROG ---
SOAP Progress Note Assessment/Plan: POD#5 Chordal sparing MVR #33 Magna bioprosthesis, transaortic septal myectomy, exploration for PFO, prophylactic AtriClip ligation JAXON Sx severe MR - s/p MVR. Routine postop echo showed EF 59% and a well- functioning prosthetic mitral valve. Started on Midodrine yesterday to augment BP. Cortisol level normal. Antithrombotic prophylaxis with Coumadin. Target INR 2-3. Duration 3 mo pending stability of rhythm. Chronic class II dCHF - Pre-op compensated on aldactone. No significant postop volume overload. Reintro of diuretic when appropriate. Asymmetric septal hypertrophy - s/p extended myectomy. Antithrombotic prophylaxis as per MV. Postop PAF - Now bradycardic. BB/amiodarone avoided. Coumadin as per MVR for thromboprophylaxis. ? Undiagnosed BROOKS- Episodes of apnea and hypoxia overnight with patient's also reporting apneic episodes at home. Recommended outpatient sleep study evaluation to patient. Postop ileus - Resolved. Acute expected blood loss anemia - Stable. No transfusions required. Secondary thrombocytopenia d/t CPB- Recovering. Hx small PFO - Not found by intraop inspection. Tooth pain/pressure- similar in nature to patient's sinus infection that he had 3 weeks ago. Placed on Augmentin for suspected recurrent infection x 5 days. Subjective: Feels well. Denies weaknes/lightheadedness. +BM. Objective: Vital Signs Temp Pulse Resp BP Pulse Ox 36.9 C 71 17 110/56 L 99 06/20/17 04:00 06/20/17 04:00 06/20/17 04:00 06/20/17 04:00 06/20/17 04:00 Laboratory Results 06/20/17 04:30 06/20/17 04:30 06/19/17 06/20/17 06/21/17 05:59 05:59 05:59 Intake Total 1400 Output Total 2850 Balance -1450 PT 21.5 SEC (12.0-15.0) H 06/20/17 04:30 INR 1.86 (0.83-1.16) H 06/20/17 04:30 Physical Exam - Physical Exam General Appearance: WD/WN, alert, no apparent distress EENT: No scleral icterus (R), No scleral icterus (L) Neck: normal inspection Respiratory: No respiratory distress Cardiac/Chest: bradycardia Abdomen: non-tender, soft, No distended Skin: normal color, warm/dry Extremities: No pedal edema Neuro/Psych: no motor/sensory deficits, alert, normal mood/affect, oriented x 3 ICD10 Worksheet Patient Problems: Problems Problem Status Onset Acute blood loss anemia Acute S/P mitral valve replacement with bioprosthetic valve Acute ~06/15/17 S/P ventricular septal myectomy Acute ~06/15/17 Severe mitral regurgitation Acute Asymmetric septal hypertrophy Chronic History of paroxysmal atrial tachycardia Chronic
[2017-06-20] MEDS ORDERED: POTASSIUM CL 20 MEQ TAB PO ONE ×2 (06:11→07:29)
[2017-06-20] MEDS ORDERED: FUROSEMIDE 40 MG/4 ML VIAL IVP ONE (07:29)
[2017-06-20] MEDS: MIDODRINE HCL 5 MG TAB PO SCH ×3 (08:25→16:58)
[2017-06-20] MEDS: CETIRIZINE 10 MG TAB PO SCH (08:26)
[2017-06-20] MEDS: ASPIRIN 81 MG CHEWABLE TAB PO SCH (08:26)
[2017-06-20] MEDS: FAMOTIDINE 20 MG TAB PO SCH ×2 (08:26→16:58)
[2017-06-20] MEDS ORDERED: NEOMY SULF/BACITRAC ZN/POLY 30 GM OINTTUBE TP SCH (09:00)
--- NOTE | 2017-06-20 13:42 | ASMTCMCOM ---
CM Note CM Note Notes: Chart reviewed. Improving. Likely home with outpatient cardiac rehab. CM available should needs arise. Date Signed: 06/20/2017 01:42 PM Electronically Signed By:Rachel Prakash RN
[2017-06-20] MEDS ORDERED: WARFARIN SODIUM 3 MG TAB PO ONE (16:00)
[2017-06-21] MEDS: AMOX/CLAVULANATE 500/125 MG TAB PO SCH (05:42)
[2017-06-21 06:09] LABS: INR 1.75 (0.83-1.16); PROTIME(PATIENT) 20.5 SEC (12.0-15.0)
--- NOTE | 2017-06-21 07:44 | SOAPPROG ---
SOAP Progress Note Assessment/Plan: POD#6 Chordal sparing MVR #33 Magna bioprosthesis, transaortic septal myectomy, exploration for PFO, prophylactic AtriClip ligation JAXON Sx severe MR - s/p MVR. Routine postop echo showed EF 59% and a well- functioning prosthetic mitral valve. Antithrombotic prophylaxis with Coumadin. Target INR 2-3. Duration 3 mo pending stability of rhythm. Chronic class II dCHF - Pre-op compensated on Aldactone and will continue on discharge. Asymmetric septal hypertrophy - s/p extended myectomy. Antithrombotic prophylaxis as per MV. Contin Postop PAF - In SR. BB avoided d/t low blood pressure. Amiodarone avoided d/t h/ o bradycardia. Coumadin as per MVR for thromboprophylaxis. ? Undiagnosed BROOKS- Episodes of apnea and hypoxia overnight with patient's also reporting apneic episodes at home. Recommended outpatient sleep study evaluation to patient. Will prescribe O2 for nighttime use. Postop ileus - Resolved. Acute expected blood loss anemia - Stable. No transfusions required. Secondary thrombocytopenia d/t CPB- Recovering. Hx small PFO - Not found by intraop inspection. Tooth pain/pressure- similar in nature to patient's sinus infection that he had 3 weeks ago. Placed on Augmentin for suspected recurrent infection x 5 days. Orthostatic hypotension - Started on Midodrine to augment BP. Cortisol level normal. Will hopefully wean on follow-up. Subjective: Feels well. Ready to go home. Objective: Vital Signs Temp Pulse Resp BP Pulse Ox 37.2 C 70 20 101/62 96 06/21/17 04:00 06/21/17 04:00 06/21/17 04:00 06/21/17 04:00 06/21/17 04:00 Laboratory Results 06/20/17 04:30 06/20/17 04:30 06/20/17 06/21/17 06/22/17 05:59 05:59 05:59 Intake Total 1400 600 Output Total 2850 1350 Balance -1450 -750 PT 20.5 SEC (12.0-15.0) H 06/21/17 05:45 INR 1.75 (0.83-1.16) H 06/21/17 05:45 Physical Exam - Physical Exam General Appearance: WD/WN, alert, no apparent distress EENT: No scleral icterus (R), No scleral icterus (L) Neck: normal inspection Respiratory: No respiratory distress Cardiac/Chest: regular rate, rhythm Abdomen: non-tender, soft, No distended Skin: normal color, warm/dry Extremities: No pedal edema Neuro/Psych: no motor/sensory deficits, alert, normal mood/affect, oriented x 3 ICD10 Worksheet Patient Problems: Problems Problem Status Onset Acute blood loss anemia Acute S/P mitral valve replacement with bioprosthetic valve Acute ~06/15/17 S/P ventricular septal myectomy Acute ~06/15/17 Severe mitral regurgitation Acute Asymmetric septal hypertrophy Chronic History of paroxysmal atrial tachycardia Chronic
[2017-06-21 07:50] VITALS: BP 95/70; PULSE 74; RESP 19; TEMP 98.5
[2017-06-21] MEDS: FAMOTIDINE 20 MG TAB PO SCH (08:08)
[2017-06-21] MEDS: MIDODRINE HCL 5 MG TAB PO SCH (08:08)
[2017-06-21] MEDS: SENNOSIDES/DOCUSATE SODIUM TAB PO SCH (08:08)
[2017-06-21] MEDS: CETIRIZINE 10 MG TAB PO SCH (08:08)
[2017-06-21] MEDS: ASPIRIN 81 MG CHEWABLE TAB PO SCH (08:08)
--- NOTE | 2017-06-21 08:36 | PDHOMEO2F ---
Home Oxygen Face to Face Home Orders: I certify that a physician or a nurse practitioner or physician's medical claims assistant has had a [id number] encounter with this patient on the date of this order due to the diagnosis listed, which relates to the primary reason the patient requires home oxygen. Alternative treatments have been tried, or considered, and deemed ineffective. It is anticipated that supplemental oxygen will result in improvement with treatment. Home oxygen qualifying diagnosis: nocturnal hypoxemia, CHF, atelectasis, mitral valve insufficiency SpO2 on room air (%): 86 Frequency of home oxygen needed: during sleep Home oxygen liters per minute: 2 Home oxygen delivery device: nasal cannula Concentrator: Yes E-tanks for mobility and back up: No I certify that, based on these findings, the home oxygen is medically necessary for this patient for the following length of time. Length of time home oxygen needed: 3 months (will need sleep study)
[2017-06-21 09:02] VITALS: O2SAT 86
--- NOTE | 2017-06-21 14:22 | ASDISCHSUM ---
Discharge Information Plan Status:Home with No Needs Medically Cleared to Leave:06/21/2017 Discharge Date:06/21/2017 10:59 AM CM D/C Disposition:Home, Routine, Self-Care ADT D/C Disposition:Home, Routine, Self-Care Projected Discharge Date:06/21/2017 10:59 AM Transportation at D/C: Discharge Delay Reason: Follow-Up Date:06/21/2017 10:59 AM Discharge Slot: Final Diagnosis: Placement Information Patient Contact Information Contact Name:CAYLA Relationship: Address:[address] [place] Alternate Phone: [facility]/Zip Code:[place] [address] Email: Financial Information Financial Class:Medicare Primary Plan Desc:MEDICARE INPATIENT Primary Plan Number:[id number] Secondary Plan Desc:SHELLY DEJESUS Secondary Plan Number:[id number] Assessment Information [facility] Initial CM Assessment Living Arrangements What is your living Answers: With Spouse arrangement? Who do you live with? Type Of Residence What kind of residence do Answers: House you live in? Discharge Plan Comments Coordination Status Comments Notes: Reviewed chart. Patient is a 71yo male who comes to the hospital for mitral valve replacement with Dr. Duncan. OT/PT/Cardiac rehab have been ordered. PT is recommending either home care or SNF rehab depending on the patient's progress. OT states no needs. D/C plan TBD in the next couple of days as patient recovers more from surgery. CM will follow. Date Signed: 06/16/2017 02:23 PM Electronically Signed By:Khalida Chaudhary LCSW [facility] CM Progress Note CM Note CM Note Notes: Chart reviewed, patient recovery complicated by episodic syncopal episodes No therapies today. CM to follow for potential discharge needs, Date Signed: 06/18/2017 03:23 PM Electronically Signed By:Rachel Prakash RN LACE LACE Length of stay for Answers: 4-6 days current admission Acuity / Level of Answers: Yes Care: Did the patient have an inpatient admission? Comorbidities - select Answers: Congestive heart failure all that apply Opioid dependence / Chronic pain Other Notes: Melanoma # of Emergency department Answers: 1-2 visits in the last 6 months Score: 15 Date Signed: 06/21/2017 02:20 PM Electronically Signed By:Isela Gonzalez RN [facility] CM Progress Note CM Note CM Note Notes: Chart reviewed. Improving. Likely home with outpatient cardiac rehab. CM available should needs arise. Date Signed: 06/20/2017 01:42 PM Electronically Signed By:Rachel Prakash RN Case Management Discharge Plan Note Case Management Discharge Discharge Order Complete? Answers: Yes Patient to Obtain Answers: Independently Medications Transportation Arranged Answers: Family/Friends Discharge Comments Notes: 06/21/2017 Case Management Note There are no case management d/c needs identified. Pt to d/c with home O2. Pt to follow up with outpatient cardiac rehab. Pt has supportive family. Date Signed: 06/21/2017 10:25 AM Electronically Signed By:Isela Gonzalez RN Intervention Information Intervention Type:*IM-Signed Date of Service:06/21/2017 09:53 AM Patient Type:Inpatient Staff Member:Marcela Harrison Hours: Discipline: Severity: Comment:
--- NOTE | 2017-06-21 15:22 | PDDCSUM ---
Discharge Summary Discharge Summary: ADMISSION DATE: 06/14/17 DISCHARGE DATE: 06/21/17 ADMISSION DIAGNOSES: 1. Severe mitral insufficiency 2. Chronic class II diastolic CHF 3. Asymmetric septal hypertrophy 4. Possible patent foramen ovale DISCHARGE DIAGNOSES: 1. Severe mitral insufficiency 2. Chronic class II diastolic CHF 3. Asymmetric septal hypertrophy 4. Patent foramen ovale ruled-out 5. Acute blood loss anemia 6. Paroxysmal atrial fibrillation 7. Nocturnal hypoxemia 8. Orthostatic hypotension 9. Tooth pain PROCEDURES 06/15/17, Omar Duncan: 1. Chordal sparing MV replacement with #33 mm Magna bioprosthesis 2. Exploration for patent foramen ovale 3. Extended septal myectomy 4. [facility] HOSPITAL COURSE BY PROBLEM LIST 1. Severe MR - stable s/p MVR. Coumadin with INR goal 2-3, duration 3 months. Lifelong baby aspirin. 2. Chronic class II diastolic CHF - medically optimized with IV Lasix during hospitalization. Aldactone resume on discharge. 3. Asymmetric septal hypertrophy - improvement s/p extended septal myectomy. Beta-ken avoided d/t low blood pressure. 4. Possible patent foramen ovale - not found during exploration. 5. Acute blood loss anemia - stable without the need for transfusions. 6. Paroxysmal atrial fibrillation - discharged in sinus rhythm. Thromboprophylaxis with Coumadin. 7. Nocturnal hypoxemia - oxygen prescribed on discharge with recommendation for further outpatient evaluation with a sleep specialist known to patient. 8. Orthostatic hypotension - midodrine prescribed with improvement in blood pressure. Will wean on follow-up visit. 9. Tooth pain/pressure - h/o sinus infection prior to heart surgery with resolution after Augmentin course. Augmentin started during hospitalization with improvement in symptoms. Continue for total of five days. CONDITION Good DISPOSITION Home, self-care ACTIVITY Pt was instructed on sternal precautions, activity limitations, and which problems to call [facility] with. Please see Discharge Plan in chart for specifics. DISCHARGE MEDICATIONS Continue: Carboxymethylcellulose 1% [Refresh Celluvisc (*)] 1 drop EACHEYE DAILY PRN Famotidine [Pepcid 20 MG (*)] 60 mg PO BIDMEAL Fexofenadine HCl [Vashti Allergy] 180 mg PO BID Spironolactone [Aldactone 25 MG (*)] 25 mg PO DAILY New: Acetaminophen [Tylenol 325mg (*)] 325 - 650 mg PO Q4HRS PRN Amox Tr/K Clav (Augmentin) [Augmentin 500/125 MG TAB (*)] 500 mg PO Q8 #14 tab Aspirin [Aspirin 81mg (*)] 81 mg PO DAILY Midodrine HCl [Proamatine/Midodrin] 5 mg PO TID Warfarin Sodium [Coumadin 5MG (*)] 5 mg PO DAILY16 Oxygen, 2 L/min, continuous PENDING STUDIES/LABS 1. CXR prior to surgical follow-up 2. [facility]R at [facility] on 06/23/17 FOLLOW-UP 1. Omar Duncan, 06/28/17, 10:00 AM
== END 2017-06-21 10:59 | disposition home or self-care (01) | DRG 216 ==
LOC: FCATH 09:11 → F2W 12:35 → F2N 06-15 06:37 → F2W 06-19 17:40
PROVIDERS: ADMIT Internal Medicine Cardiovascular Disease; ATTEND Internal Medicine Cardiovascular Disease
PROC: B2111ZZ Fluoroscopy of Multiple Coronary Arteries using Low Osmolar Contrast (ICD-10-PCS; 2017-06-14)
PROC: 4A023N7 Measurement of Cardiac Sampling and Pressure, Left Heart, Percutaneous Approach (ICD-10-PCS; 2017-06-14)
PROC: 02B50ZZ Excision of Atrial Septum, Open Approach (ICD-10-PCS; principal; 2017-06-15 07:15)
PROC: 02RG08Z Replacement of Mitral Valve with Zooplastic Tissue, Open Approach (ICD-10-PCS; principal; 2017-06-15 07:15)
PROC: 5A1223Z Performance of Cardiac Pacing, Continuous (ICD-10-PCS; principal; 2017-06-15 07:15)
PROC: 02L70CK Occlusion of Left Atrial Appendage with Extraluminal Device, Open Approach (ICD-10-PCS; principal; 2017-06-15 07:15)
DX: I34.0 Nonrheumatic mitral (valve) insufficiency (principal); I51.1 Rupture of chordae tendineae, not elsewhere classified; I50.32 Chronic diastolic (congestive) heart failure; D62 Acute posthemorrhagic anemia; I42.2 Other hypertrophic cardiomyopathy; I48.0 Paroxysmal atrial fibrillation; R09.02 Hypoxemia; I95.1 Orthostatic hypotension; K08.89 Other specified disorders of teeth and supporting structures; I27.20 Pulmonary hypertension, unspecified; G47.33 Obstructive sleep apnea (adult) (pediatric); D69.59 Other secondary thrombocytopenia
CPT/HCPCS: 82947-QW; 97116-GP; 97162-GP; 97166-GO; 97530-GP; 97535-GO; C1769; G8978-GP-CL; G8979-GP-CI; G8987-GO-CK; G8988-GO-CI; J0153; J0282; J0690; J1100; J1265; J1644; J1815; J1885; J1940; J2001; J2150; J2250; J2260; J2270; J2370; J2405; J2704; J2720; J2765; J2930; J3010; J3475; J7060; P9041; Q9967

== ENCOUNTER → 2017-06-28 | Outpatient (CLI) | payer OTHER | LOC: FIMAGING 09:01 | PROVIDERS: ATTEND Thoracic Surgery (Cardiothoracic Vascular Surgery) | DX: Z09 Encounter for follow-up examination after completed treatment for conditions other than malignant neoplasm (principal); Z95.2 Presence of prosthetic heart valve; J90 Pleural effusion, not elsewhere classified ==

== ENCOUNTER → 2017-08-12 | Outpatient (CLI) | payer OTHER | LOC: FIMAGING 16:22 | PROVIDERS: ATTEND Internal Medicine Interventional Cardiology | DX: J90 Pleural effusion, not elsewhere classified (principal); I51.7 Cardiomegaly; I31.3 Pericardial effusion (noninflammatory); Z95.2 Presence of prosthetic heart valve ==

== ENCOUNTER → 2017-08-29 | Outpatient (CLI) | payer OTHER | LOC: BHCLAF 08:30 | PROVIDERS: ATTEND Internal Medicine | DX: Z95.2 Presence of prosthetic heart valve (principal) | CPT/HCPCS: 93880-PO ==